=== PATIENT | male | born 1970 | race Caucasian/White ===

== ENCOUNTER 2022-07-24 11:28 | Inpatient (IN) | payer OTHER ==
[2022-07-24] VITALS (14 sets, daily range): BP systolic 95–174; BP diastolic 49–83
[~2022-07-24] VITALS: Ht 193 cm; Wt 174.6 kg
[2022-07-24] MEDS ORDERED: ASPIRIN 325 MG TAB PO ONE (12:15)
[2022-07-24 12:17] LABS: BASOPHILS # (AUTO) 0.1 (0.0-0.1); BASOPHILS % 0.6 % (0.0-1.0); EOSINOPHILS % 0.3 % (0.0-6.0); HEMATOCRIT 62.3 % (38.2-49.6); HEMOGLOBIN 18.4 g/dL (14.0-18.0); LYMPHOCYTES # (AUTO) 1.8 (1.0-3.2); LYMPHOCYTES % 16.8 % (18.0-39.1); MEAN CORPUSCULAR HGB CONC 29.5 g/dL (31-35); MEAN CORPUSCULAR VOLUME 101.6 fL (81-99); MONOCYTES # (AUTO) 0.9 (0.2-0.8); MONOCYTES % 8.2 % (4.4-11.3); NEUTROPHILS # (AUTO) 7.9 (2.1-6.9); NEUTROPHILS % 72.3 % (38.7-80.0); PLATELET COUNT 195 x10e3/uL (140-360); RED BLOOD COUNT 6.13 x10e6/uL (4.3-5.7); RED CELL DISTRIBUTION WIDTH 15.8 % (11.7-14.4)
[2022-07-24 12:28] LABS: INR 1.2; PROTHROMBIN TIME 16.3 seconds (11.9-14.5)
[2022-07-24 12:29] LABS: PARTIAL THROMBOPLASTIN TIME 30.6 seconds (23.8-35.5)
[2022-07-24 12:38] LABS: ALANINE AMINOTRANSFERASE 13 IU/L (0-55); ALBUMIN 3.2 g/dL (3.5-5.0); ALBUMIN/GLOBULIN RATIO 0.7 (0.8-2.0); ALKALINE PHOSPHATASE 46 IU/L (40-150); ANION GAP 13.4 mmol/L (8-16); BLOOD UREA NITROGEN 7 mg/dL (7-26); BUN/CREATININE RATIO 8 (6-25); CALCIUM 9.2 mg/dL (8.4-10.2); CARBON DIOXIDE 36 mmol/L (22-29); CHLORIDE 92 mmol/L (98-107); CREATININE, SERUM 0.84 mg/dL (0.72-1.25); GLUCOSE 115 mg/dL (74-118); LIPASE 12 U/L (8-78); POTASSIUM 4.4 mmol/L (3.5-5.1); SODIUM 137 mmol/L (136-145)
[2022-07-24] MEDS: SODIUM CHLORIDE FLUSH 10 ML SYR IV PRN ×2 (13:15→17:29)
[2022-07-24] MEDS ORDERED: IOPAMIDOL 370 MG/ML 100 ML INFUS..BTL INJ ONE (13:26)
[2022-07-24] MEDS ORDERED: ENOXAPARIN SODIUM INJ 100 MG/ML SYR SC STA (15:27)
[2022-07-24] MEDS ORDERED: ONDANSETRON HCL INJ 2MG/ML 2ML 2 MG/ML VIAL IV PRN ×2 (15:45→16:15)
[2022-07-24] MEDS ORDERED: ASPIRIN 81 MG CHEW TAB PO ONE (15:45)
[2022-07-24] MEDS ORDERED: ZOLPIDEM TARTRATE 5 MG TAB PO PRN (16:15)
[2022-07-24 16:18] LABS: CREATINE KINASE 36 IU/L (30-200)
[2022-07-24 17:01] LABS: ABG PH 7.21 (7.35-7.45)
[2022-07-24 17:02] LABS: ABG HCO3 41 mmol/L (22-26); ABG PCO2 104 mmHg (35-45); ABG PO2 70 mmHg (80-105); ABG TCO2 44
[2022-07-24 17:47] LABS: CLARITY,URINE SL CLOUDY (CLEAR); COLOR,URINE AMBER (YELLOW); KETONES,URINE NEGATIVE (NEGATIVE); LEUKOCYTE ESTERASE ,URINE NEGATIVE (NEGATIVE); NITRITE,URINE NEGATIVE (NEGATIVE); PROTEIN,URINE DIPSTICK 2+ (NEGATIVE); URINE UROBILINOGEN 0.2 mg/dL (0.2 - 1)
[2022-07-24 17:51] LABS: BACTERIA,URINE RARE /HPF; EPITHELIAL CELLS,URINE FEW /LPF; WBC,URINE (MAN) 0-5 /HPF (0-5)
[2022-07-24 17:52] LABS: AMORPHOUS SEDIMENT,URINE FEW (FEW); HYALINE CASTS 0-1 (0-1)
[2022-07-24 17:53] LABS: ABG HCO3 41 mmol/L (22-26); ABG PCO2 103 mmHg (35-45); ABG PH 7.21 (7.35-7.45); ABG PO2 116 mmHg (80-105)
[2022-07-24 17:54] LABS: ABG TCO2 44
[2022-07-24] MEDS: PROPOFOL IV EMULSION 100 ML IV PRN ×4 (17:55→23:42)
[2022-07-24] MEDS ORDERED: ETOMIDATE 2 MG/ML 10 ML INJ IV STA (18:10)
[2022-07-24] MEDS ORDERED: SUCCINYLCHOLINE 200 MG/10 ML SYR IV STA (18:10)
[2022-07-24] MEDS ORDERED: PROPOFOL IV EMULSION 50 ML IV ONE ×2 (18:13→18:55)
[2022-07-24] MEDS ORDERED: FENTANYL CITRATE/PF 100MCG/2 ML INJ IV ONE (18:30)
[2022-07-24 19:06] LABS: AMPHETAMINES SCREEN,URINE NEGATIVE (NEGATIVE); BENZODIAZEPINES SCREEN,URINE NEGATIVE (NEGATIVE); PHENCYCLIDINE SCREEN,URINE NEGATIVE (NEGATIVE)
[2022-07-24] MEDS ORDERED: NOREPINEPHRINE 8 MG/D5W 250 ML 250 ML ONE (19:10)
[2022-07-24 19:41] LABS: FREE THYROXINE INDEX 1.66 (1.4-3.8); THYROID STIMULATING HORMONE 0.303 uIU/mL (0.350-4.940)
[2022-07-24] MEDS: ALBUTEROL SULF 0.083% NEB SOLN 3 ML NEB NEB PRN (20:00)
[2022-07-24] MEDS ORDERED: Vancomycin IV 1 GM in SODIUM CHLORIDE 0.9% 250ML 250 ML IV ONE (20:30)
[2022-07-24 20:41] LABS: ABG HCO3 39 mmol/L (22-26); ABG PCO2 63 mmHg (35-45); ABG PO2 101 mmHg (80-105); ABG TCO2 41
[2022-07-24] MEDS: FENTANYL 2000MCG/NS 250 250 ML IV PRN (20:55)
[2022-07-24] MEDS ORDERED: PROPOFOL IV EMULSION 10MG/ML 200 ML ONE ×2 (21:03→23:52)
[2022-07-24 21:07] LABS: CREATINE KINASE MB 1.3 ng/mL (0-5.0)
[2022-07-24] MEDS ORDERED: FUROSEMIDE INJ 10 MG/ML 4 ML VIAL IV ONE (22:15)
[2022-07-24] MEDS: MEROPENEM 1 GM in SODIUM CHLORIDE 0.9% 100 ML IV SCH (23:43)
[2022-07-25] VITALS (60 sets, daily range): BP systolic 87–209; BP diastolic 48–117
[2022-07-25] MEDS: FENTANYL 2000MCG/NS 250 250 ML IV PRN ×2 (01:32→08:36)
[2022-07-25] MEDS: PROPOFOL IV EMULSION 100 ML IV PRN ×4 (02:30→11:39)
[2022-07-25] MEDS ORDERED: PROPOFOL IV EMULSION 10MG/ML 200 ML ONE ×3 (02:39→10:35)
[2022-07-25] MEDS: MEROPENEM 1 GM in SODIUM CHLORIDE 0.9% 100 ML IV SCH ×3 (05:44→21:56)
[2022-07-25 06:50] LABS: BASOPHILS % 0.4 % (0.0-1.0); EOSINOPHILS # (AUTO) 0.1 (0.0-0.4); EOSINOPHILS % 1.4 % (0.0-6.0); HEMATOCRIT 49.7 % (38.2-49.6); HEMOGLOBIN 14.8 g/dL (14.0-18.0); LYMPHOCYTES # (AUTO) 2.3 (1.0-3.2); LYMPHOCYTES % 28.9 % (18.0-39.1); MEAN CORPUSCULAR HEMOGLOBIN 29.9 pg (28-32); MEAN CORPUSCULAR HGB CONC 29.8 g/dL (31-35); MEAN CORPUSCULAR VOLUME 100.4 fL (81-99); MONOCYTES # (AUTO) 0.6 (0.2-0.8); MONOCYTES % 7.4 % (4.4-11.3); NEUTROPHILS # (AUTO) 4.8 (2.1-6.9); NEUTROPHILS % 60.1 % (38.7-80.0); PLATELET COUNT 141 x10e3/uL (140-360); RED BLOOD COUNT 4.95 x10e6/uL (4.3-5.7); RED CELL DISTRIBUTION WIDTH 15.2 % (11.7-14.4)
[2022-07-25] MEDS: ALBUTEROL SULF 0.083% NEB SOLN 3 ML NEB NEB PRN (07:15)
[2022-07-25 07:17] LABS: ANION GAP 15.1 mmol/L (8-16); CREATININE, SERUM 0.61 mg/dL (0.72-1.25); POTASSIUM 3.1 mmol/L (3.5-5.1)
[2022-07-25 07:24] LABS: CALCIUM 6.8 mg/dL (8.4-10.2)
[2022-07-25 07:25] LABS: CREATINE KINASE MB 0.4 ng/mL (0-5.0)
[2022-07-25 08:08] LABS: ABG HCO3 38 mmol/L (22-26); ABG PCO2 51 mmHg (35-45); ABG PH 7.49 (7.35-7.45); ABG PO2 84 mmHg (80-105); ABG TCO2 40
[2022-07-25] MEDS: FUROSEMIDE INJ 10 MG/ML 4 ML VIAL IV SCH ×2 (08:28→21:56)
[2022-07-25] MEDS ORDERED: POTASSIUM CHLORIDE 20MEQ/100ML 200 ML IV ONE (08:45)
[2022-07-25] MEDS ORDERED: CALCIUM GLUCONATE 10% INJ 9.3 MEQ in SODIUM CHLORIDE 0.9% 100 ML IV ONE (09:00)
[2022-07-25] MEDS: SODIUM CHLORIDE FLUSH 10 ML SYR IV PRN (11:39)
[2022-07-25 11:53] LABS: ABG HCO3 42 mmol/L (22-26); ABG PCO2 62 mmHg (35-45); ABG PH 7.44 (7.35-7.45); ABG PO2 78 mmHg (80-105); ABG TCO2 44
[2022-07-25] MEDS ORDERED: IOPAMIDOL 370 MG/ML 100 ML INFUS..BTL INJ ONE (14:55)
[2022-07-25] MEDS: OSELTAMIVIR PHOSPHATE 75 MG CAP PO SCH (17:00)
[2022-07-25] MEDS: ENOXAPARIN SOD INJ 40 MG/0.4 ML SYR SC SCH (17:22)
[2022-07-25 17:29] LABS: ABG PH 7.28 (7.35-7.45)
[2022-07-25 17:30] LABS: ABG HCO3 47 mmol/L (22-26); ABG PCO2 100 mmHg (35-45); ABG PO2 68 mmHg (80-105); ABG TCO2 50
[2022-07-25 17:32] LABS: ABG HCO3 46 mmol/L (22-26); ABG PCO2 93 mmHg (35-45); ABG PO2 345 mmHg (80-105); ABG TCO2 49
[2022-07-25 19:40] LABS: ABG HCO3 44 mmol/L (22-26); ABG PCO2 91 mmHg (35-45); ABG PH 7.29 (7.35-7.45); ABG PO2 128 mmHg (80-105)
[2022-07-25 19:41] LABS: ABG TCO2 47
[2022-07-25 21:40] LABS: ABG HCO3 44 mmol/L (22-26); ABG PCO2 84 mmHg (35-45); ABG PH 7.33 (7.35-7.45); ABG PO2 81 mmHg (80-105); ABG TCO2 47
[2022-07-25] MEDS ORDERED: NICOTINE 21 MG/EA PATCH TOP PRN (21:45)
[2022-07-26] VITALS (27 sets, daily range): BP systolic 95–148; BP diastolic 57–106
[2022-07-26] MEDS: MEROPENEM 1 GM in SODIUM CHLORIDE 0.9% 100 ML IV SCH (06:13)
[2022-07-26 07:00] LABS: BASOPHILS % 0.4 % (0.0-1.0); EOSINOPHILS # (AUTO) 0.2 (0.0-0.4); EOSINOPHILS % 2.1 % (0.0-6.0); HEMATOCRIT 58.4 % (38.2-49.6); HEMOGLOBIN 17.3 g/dL (14.0-18.0); LYMPHOCYTES # (AUTO) 1.4 (1.0-3.2); LYMPHOCYTES % 17.5 % (18.0-39.1); MEAN CORPUSCULAR HEMOGLOBIN 29.7 pg (28-32); MEAN CORPUSCULAR HGB CONC 29.6 g/dL (31-35); MEAN CORPUSCULAR VOLUME 100.3 fL (81-99); MONOCYTES # (AUTO) 0.7 (0.2-0.8); MONOCYTES % 8.8 % (4.4-11.3); NEUTROPHILS # (AUTO) 5.7 (2.1-6.9); PLATELET COUNT 163 x10e3/uL (140-360); RED BLOOD COUNT 5.82 x10e6/uL (4.3-5.7)
[2022-07-26 07:16] LABS: ALBUMIN 2.9 g/dL (3.5-5.0); ALBUMIN/GLOBULIN RATIO 0.7 (0.8-2.0); ANION GAP 14.1 mmol/L (8-16); CALCIUM 8.9 mg/dL (8.4-10.2); CREATININE, SERUM 0.65 mg/dL (0.72-1.25); POTASSIUM 4.1 mmol/L (3.5-5.1)
[2022-07-26] MEDS ORDERED: METHYLPREDNISOLONE SOD SUCC 40 MG/ML VIAL 1ML IV ONE (08:00)
[2022-07-26 08:20] LABS: ABG PH 7.31 (7.35-7.45)
[2022-07-26 08:21] LABS: ABG PCO2 90 mmHg (35-45)
[2022-07-26 08:22] LABS: ABG HCO3 45 mmol/L (22-26); ABG PO2 94 mmHg (80-105); ABG TCO2 47
[2022-07-26 08:27] LABS: ABG HCO3 45 mmol/L (22-26); ABG PCO2 90 mmHg (35-45); ABG PH 7.31 (7.35-7.45); ABG PO2 94 mmHg (80-105); ABG TCO2 47
[2022-07-26] MEDS: OSELTAMIVIR PHOSPHATE 75 MG CAP PO SCH ×2 (09:25→16:16)
[2022-07-26] MEDS: FUROSEMIDE INJ 10 MG/ML 4 ML VIAL IV SCH (09:25)
[2022-07-26] MEDS: ENOXAPARIN SOD INJ 40 MG/0.4 ML SYR SC SCH (16:16)
[2022-07-26 17:14] LABS: ABG PH 7.39 (7.35-7.45)
[2022-07-26 17:15] LABS: ABG HCO3 45 mmol/L (22-26); ABG PCO2 74 mmHg (35-45); ABG PO2 103 mmHg (80-105); ABG TCO2 47
[2022-07-27] VITALS (25 sets, daily range): BP systolic 94–139; BP diastolic 54–90
[2022-07-27 06:32] LABS: BASOPHILS % 0.2 % (0.0-1.0); EOSINOPHILS % 0.1 % (0.0-6.0); HEMATOCRIT 56.5 % (38.2-49.6); HEMOGLOBIN 17.4 g/dL (14.0-18.0); LYMPHOCYTES # (AUTO) 1.1 (1.0-3.2); LYMPHOCYTES % 8.9 % (18.0-39.1); MEAN CORPUSCULAR HEMOGLOBIN 29.1 pg (28-32); MEAN CORPUSCULAR HGB CONC 30.8 g/dL (31-35); MEAN CORPUSCULAR VOLUME 94.6 fL (81-99); MONOCYTES # (AUTO) 0.6 (0.2-0.8); MONOCYTES % 4.8 % (4.4-11.3); NEUTROPHILS # (AUTO) 10.8 (2.1-6.9); NEUTROPHILS % 85.3 % (38.7-80.0); PLATELET COUNT 183 x10e3/uL (140-360); RED BLOOD COUNT 5.97 x10e6/uL (4.3-5.7); RED CELL DISTRIBUTION WIDTH 14.4 % (11.7-14.4)
[2022-07-27 06:49] LABS: ALBUMIN 2.8 g/dL (3.5-5.0); ALBUMIN/GLOBULIN RATIO 0.7 (0.8-2.0); ANION GAP 12.6 mmol/L (8-16); CALCIUM 9.3 mg/dL (8.4-10.2); CREATININE, SERUM 0.64 mg/dL (0.72-1.25); POTASSIUM 4.6 mmol/L (3.5-5.1)
[2022-07-27] MEDS: FUROSEMIDE INJ 10 MG/ML 4 ML VIAL IV SCH (08:19)
[2022-07-27] MEDS: OSELTAMIVIR PHOSPHATE 75 MG CAP PO SCH ×2 (08:19→16:34)
[2022-07-27 08:40] LABS: ABG PH 7.42 (7.35-7.45)
[2022-07-27 08:41] LABS: ABG HCO3 43 mmol/L (22-26); ABG PCO2 67 mmHg (35-45); ABG PO2 195 mmHg (80-105); ABG TCO2 45
[2022-07-27] MEDS: ENOXAPARIN SOD INJ 40 MG/0.4 ML SYR SC SCH (16:34)
[2022-07-28] VITALS (18 sets, daily range): BP systolic 94–117; BP diastolic 56–84
[2022-07-28] MEDS: FUROSEMIDE INJ 10 MG/ML 4 ML VIAL IV SCH (08:20)
[2022-07-28] MEDS: OSELTAMIVIR PHOSPHATE 75 MG CAP PO SCH ×2 (08:20→16:38)
[2022-07-28 13:52] LABS: ANION GAP 14.7 mmol/L (8-16); CALCIUM 9.5 mg/dL (8.4-10.2); CREATININE, SERUM 0.68 mg/dL (0.72-1.25); POTASSIUM 3.7 mmol/L (3.5-5.1)
[2022-07-28] MEDS ORDERED: SENNA-S TABLET PO ONE (14:00)
[2022-07-28] MEDS: ENOXAPARIN SOD INJ 40 MG/0.4 ML SYR SC SCH (16:38)
[2022-07-29] VITALS (22 sets, daily range): BP systolic 96–136; BP diastolic 56–100
[2022-07-29 05:28] LABS: BASOPHILS % 0.4 % (0.0-1.0); EOSINOPHILS # (AUTO) 0.3 (0.0-0.4); EOSINOPHILS % 3.3 % (0.0-6.0); HEMATOCRIT 59.8 % (38.2-49.6); HEMOGLOBIN 17.7 g/dL (14.0-18.0); LYMPHOCYTES # (AUTO) 1.6 (1.0-3.2); LYMPHOCYTES % 20.6 % (18.0-39.1); MEAN CORPUSCULAR HEMOGLOBIN 29.4 pg (28-32); MEAN CORPUSCULAR HGB CONC 29.6 g/dL (31-35); MEAN CORPUSCULAR VOLUME 99.2 fL (81-99); MONOCYTES # (AUTO) 0.7 (0.2-0.8); MONOCYTES % 8.3 % (4.4-11.3); NEUTROPHILS # (AUTO) 5.3 (2.1-6.9); NEUTROPHILS % 66.8 % (38.7-80.0); PLATELET COUNT 184 x10e3/uL (140-360); RED BLOOD COUNT 6.03 x10e6/uL (4.3-5.7); RED CELL DISTRIBUTION WIDTH 14.6 % (11.7-14.4)
[2022-07-29 05:43] LABS: ANION GAP 13.7 mmol/L (8-16); CALCIUM 9.1 mg/dL (8.4-10.2); CREATININE, SERUM 0.65 mg/dL (0.72-1.25); POTASSIUM 3.7 mmol/L (3.5-5.1)
[2022-07-29] MEDS: FUROSEMIDE INJ 10 MG/ML 4 ML VIAL IV SCH (08:35)
[2022-07-29] MEDS: OSELTAMIVIR PHOSPHATE 75 MG CAP PO SCH ×2 (08:36→17:06)
[2022-07-29] MEDS: ENOXAPARIN SOD INJ 40 MG/0.4 ML SYR SC SCH (17:06)
[2022-07-30 04:00] VITALS: BP 134/84
[2022-07-30 07:29] VITALS: BP 108/65
[2022-07-30 08:01] VITALS: BP 108/65
[2022-07-30] MEDS: OSELTAMIVIR PHOSPHATE 75 MG CAP PO SCH ×2 (09:25→17:03)
[2022-07-30] MEDS: FUROSEMIDE INJ 10 MG/ML 4 ML VIAL IV SCH (09:25)
[2022-07-30 11:23] VITALS: BP 124/82
[2022-07-30 15:12] LABS: CALCIUM 9.4 mg/dL (8.4-10.2); CREATININE, SERUM 0.72 mg/dL (0.72-1.25)
[2022-07-30 15:31] VITALS: BP 128/78
[2022-07-30] MEDS ORDERED: ONDANSETRON HCL 4 MG ORAL DISINTEGRATING TAB PO PRN (15:45)
[2022-07-30] MEDS ORDERED: AZITHROMYCIN 250 MG TAB PO SCH (17:00)
[2022-07-30] MEDS ORDERED: FUROSEMIDE INJ 10 MG/ML 4 ML VIAL IV SCH (17:00)
== END 2022-07-30 17:50 | disposition home or self-care (01) | DRG 208 ==
LOC: ER 11:39 → ERHOLD 15:43 → ICU 20:13 → MED/SURG3 07-29 23:03
PROVIDERS: ADMIT Family Medicine; ATTEND Family Medicine
PROC: 03HB33Z Insertion of Infusion Device into Right Radial Artery, Percutaneous Approach (ICD-10-PCS; principal; 2022-07-24)
PROC: 5A1935Z Respiratory Ventilation, Less than 24 Consecutive Hours (ICD-10-PCS; 2022-07-24)
PROC: 0BH17EZ Insertion of Endotracheal Airway into Trachea, Via Natural or Artificial Opening (ICD-10-PCS; 2022-07-24)
PROC: 02HV33Z Insertion of Infusion Device into Superior Vena Cava, Percutaneous Approach (ICD-10-PCS; 2022-07-25)
PROC: 05HY33Z Insertion of Infusion Device into Upper Vein, Percutaneous Approach (ICD-10-PCS; 2022-07-25)
PROC: 5A09457 Assistance with Respiratory Ventilation, 24-96 Consecutive Hours, Continuous Positive Airway Pressure (ICD-10-PCS; 2022-07-25)
DX: J96.22 Acute and chronic respiratory failure with hypercapnia (principal); G93.41 Metabolic encephalopathy; E66.2 Morbid (severe) obesity with alveolar hypoventilation; Z68.42 Body mass index [BMI] 45.0-49.9, adult; J96.21 Acute and chronic respiratory failure with hypoxia; J10.1 Influenza due to other identified influenza virus with other respiratory manifestations; I27.21 Secondary pulmonary arterial hypertension; G47.33 Obstructive sleep apnea (adult) (pediatric); D75.1 Secondary polycythemia; I27.81 Cor pulmonale (chronic); Z20.822 Contact with and (suspected) exposure to COVID-19
CPT/HCPCS: 0223U; 31500; 36415; 36569; 36600; 51700; 71045; 71260; 80048; 80053; 80307; 81001; 82550; 82553; 82805; 83605; 83690; 83880; 84436; 84443; 84479; 84484; 85025; 85610; 85730; 87040; 87400; 93005; 93306; 93970; 94002; 94003; 94640; 94660; 94799; 99251; 99285; J0456; J0610; J0696; J1650; J1940; J2185; J2405; J2920; J3370; J3480; J7050; Q9967

== ENCOUNTER → 2024-06-08 | Day surgery (SDC) | payer OTHER ==
[~2024-06-08] MED LIST: DEXMEDETOMIDINE HCL 200 MCG/2 ML VIAL ONE; GLUCAGON FOR INJ 1 MG VIAL ONE; HYOSCYAMINE SULFATE 0.5 MG/ML INJ ONE; LIDOCAINE HCL 2% LOCAL INJ 5 ML SDV VIAL INJ ONE; MOUNJARO12.5 MG/0. SQ; PROPOFOL IV EMULSION 10 MG/ML 20 ML VIAL ONE; PROPOFOL IV EMULSION 10 MG/ML 50 ML VIAL IV ONE
[2024-06-08] MEDS: LACTATED RINGER'S 1,000 ML ONE (11:54)
[2024-06-08 13:46] VITALS: TEMP 98
[2024-06-08 14:15] VITALS: BP 143/78; PULSE 66; RESP 16; O2SAT 97
[2024-06-08] MEDS: METRONIDAZOLE 500 MG TAB PO ONE (14:20)
[2024-06-08] MEDS: LEVOFLOXACIN 500 MG TAB PO ONE (14:20)
[2024-06-08 14:41] LABS: ALBUMIN 3.8 g/dL (3.5-5.0); BILIRUBIN,DIRECT 0.4 mg/dL (0.0-0.5); BILIRUBIN,TOTAL 0.8 mg/dL (0.2-1.2); TOTAL PROTEIN 7.5 g/dL (6.5-8.1)
== END | disposition home or self-care (01) ==
LOC: OR 11:28
PROVIDERS: ATTEND Internal Medicine Gastroenterology
DX: Z12.11 Encounter for screening for malignant neoplasm of colon (principal); K57.30 Diverticulosis of large intestine without perforation or abscess without bleeding; K63.89 Other specified diseases of intestine; I86.8 Varicose veins of other specified sites; K64.8 Other hemorrhoids; Z71.3 Dietary counseling and surveillance; G47.33 Obstructive sleep apnea (adult) (pediatric); E11.9 Type 2 diabetes mellitus without complications; E66.01 Morbid (severe) obesity due to excess calories; F17.290 Nicotine dependence, other tobacco product, uncomplicated; Z71.6 Tobacco abuse counseling; Z88.0 Allergy status to penicillin; Z79.85 Long-term (current) use of injectable non-insulin antidiabetic drugs; Z68.41 Body mass index [BMI] 40.0-44.9, adult
CPT/HCPCS: 36415; 45380; 74018; 80076; 93005; J1610; J1980; J2001; J2704 ×2; J7121; 45378